=== PATIENT | male | born 2000 | race Caucasian/White ===

== ENCOUNTER 2021-06-09 19:48 | Outpatient (CLI) | payer MEDICAID | END 2021-06-09 19:49 | disposition critical access hospital (66) | LOC: EMS 19:48 | DX: R41.82 Altered mental status, unspecified (principal); F10.129 Alcohol abuse with intoxication, unspecified | CPT/HCPCS: A0425; A0427; A0999 ==

== ENCOUNTER 2021-06-09 20:15 | Emergency (ER) | payer MEDICAID ==
[2021-06-09 20:27] VITALS: BP 145/56
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
== END 2021-06-09 21:50 | disposition home or self-care (01) ==
LOC: ED 20:15
DX: F10.10 Alcohol abuse, uncomplicated (principal); F12.10 Cannabis abuse, uncomplicated
CPT/HCPCS: 99281